=== PATIENT | female | born 1955 | race Caucasian/White ===

== ENCOUNTER → 2016-08-14 | Outpatient (CLI) | payer BC ==
--- NOTE | 2016-09-02 09:36 | RSPPFT ---
DATE OF PROCEDURE: 08/14/16 COMMENTS: Spirometry with FVC of 3.0 predicted 3.0, FEV1 of 2.4 predicted 2.1, FEV1/FVC ratio 78% predicted 72%. Lung volumes are within the predicted range as well as the DLCO. IMPRESSION:
== END ==
LOC: HRSP 09:05
PROVIDERS: ATTEND Family Medicine
DX: R91.1 Solitary pulmonary nodule (principal)
CPT/HCPCS: 94060; 94726; 94729